=== PATIENT | male | born 1955 | race Caucasian/White ===

== ENCOUNTER 2018-07-25 16:52 | Observation (INO) | payer OTHER | END 2018-07-26 16:05 | disposition home or self-care (01) | LOC: MEDICAL 16:52 | PROVIDERS: ADMIT Hospitalist | DX: R20.0 Anesthesia of skin (principal); I10 Essential (primary) hypertension; E78.5 Hyperlipidemia, unspecified; E66.9 Obesity, unspecified; G47.33 Obstructive sleep apnea (adult) (pediatric); N17.9 Acute kidney failure, unspecified; G89.29 Other chronic pain; M54.5 Low back pain; E87.6 Hypokalemia; Z82.3 Family history of stroke; Z82.49 Family history of ischemic heart disease and other diseases of the circulatory system; Z79.82 Long term (current) use of aspirin ==

== ENCOUNTER → 2021-05-02 | Outpatient (CLI) | payer MEDICARE ==
[~2021-05-02] MED LIST: ALEVE 220MG220 MG PO; ANTARA; ANTARA PO; ASPIR-LOW81 MG PO; ATACAND 16M16 MG/TAB PO; CALTRATE-600 W600 MG PO; CARDIZEM CD 24240 MG PO; CARTIA XT120 MG PO; CLARITIN 1010 MG/TAB PO; GLUCOSAMINE MSM1 TAB PO; GLUCOSAMINE/CHONDROI PO; HCTZ 25MG TAB25 MG PO; K-DUR 10 MEQ T10 MEQ PO; MULTI VITAMINS1 TAB PO; MVI; NATURAL E400 IU PO; PRAVACHOL 20MG20 MG PO; PRAVACHOL10 MG PO; VITAMIN E1000 IU PO; ZOCOR; [UNRECOGNIZED DRUG - OTHER] PO
== END ==
LOC: MHCPAIN 10:19
DX: M47.817 Spondylosis without myelopathy or radiculopathy, lumbosacral region (principal); M53.3 Sacrococcygeal disorders, not elsewhere classified; M54.50 Low back pain, unspecified
CPT/HCPCS: G0463

== ENCOUNTER → 2021-05-12 | Outpatient (CLI) | payer MEDICARE | LOC: MHCPAIN 10:39 | DX: M47.817 Spondylosis without myelopathy or radiculopathy, lumbosacral region (principal); M53.3 Sacrococcygeal disorders, not elsewhere classified; M54.16 Radiculopathy, lumbar region | CPT/HCPCS: J1100; Q9967 ==

== ENCOUNTER → 2021-05-18 | Outpatient (CLI) | payer MEDICARE | LOC: MHCPAIN 10:49 | DX: M54.16 Radiculopathy, lumbar region (principal); M47.817 Spondylosis without myelopathy or radiculopathy, lumbosacral region; G89.29 Other chronic pain | CPT/HCPCS: G0463 ==

== ENCOUNTER → 2021-11-02 | Outpatient (CLI) | payer MEDICARE, OTHER | LOC: MHCPAIN 15:03 | DX: M47.817 Spondylosis without myelopathy or radiculopathy, lumbosacral region (principal); M53.3 Sacrococcygeal disorders, not elsewhere classified; M54.16 Radiculopathy, lumbar region | CPT/HCPCS: G0463 ==

== ENCOUNTER → 2021-11-17 | Outpatient (CLI) | payer MEDICARE, OTHER | LOC: MHCPAIN 08:02 | DX: M47.817 Spondylosis without myelopathy or radiculopathy, lumbosacral region (principal); M53.3 Sacrococcygeal disorders, not elsewhere classified; M54.16 Radiculopathy, lumbar region | CPT/HCPCS: J1100; Q9967 ==

== ENCOUNTER → 2021-12-07 | Outpatient (CLI) | payer MEDICARE, OTHER | LOC: MHCPAIN 08:42 | DX: M47.817 Spondylosis without myelopathy or radiculopathy, lumbosacral region (principal); M53.3 Sacrococcygeal disorders, not elsewhere classified; M54.16 Radiculopathy, lumbar region; I10 Essential (primary) hypertension; Z86.73 Personal history of transient ischemic attack (TIA), and cerebral infarction without residual deficits; Z79.01 Long term (current) use of anticoagulants | CPT/HCPCS: G0463 ==

== ENCOUNTER → 2021-12-15 | Outpatient (CLI) | payer MEDICARE, OTHER | LOC: MHCPAIN 08:54 | DX: M47.817 Spondylosis without myelopathy or radiculopathy, lumbosacral region (principal); M53.3 Sacrococcygeal disorders, not elsewhere classified; M54.50 Low back pain, unspecified ==

== ENCOUNTER → 2021-12-29 | Outpatient (CLI) | payer MEDICARE, OTHER | LOC: MHCPAIN 12:00 | DX: M47.817 Spondylosis without myelopathy or radiculopathy, lumbosacral region (principal); M54.50 Low back pain, unspecified; M53.3 Sacrococcygeal disorders, not elsewhere classified | CPT/HCPCS: G0463 ==

== ENCOUNTER 2022-08-07 15:15 | Day surgery (SDC) | payer MEDICARE, OTHER ==
[~2022-08-07] VITALS: Ht 172.7 cm; Wt 101.6 kg
[2022-08-07 16:13] VITALS: BP 160/61; PULSE 66; TEMP 98.8
[2022-08-07] MEDS ORDERED: TRICOR 48MG48 MG PO (16:32)
[2022-08-07] MEDS ORDERED: PLAVIX 75MG TAB75 MG PO (16:32)
[2022-08-07] MEDS ORDERED: COZAAR 50MG50 MG/TAB PO (16:33)
[2022-08-07] MEDS ORDERED: BYSTOLIC10 MG PO (16:34)
[2022-08-07] MEDS ORDERED: MINIPRESS 1M1 MG/CAP PO (16:35)
[2022-08-07] MEDS ORDERED: QUERCETIN500 M1 PO (16:37)
[2022-08-07] MEDS ORDERED: PHARMASSURE ZIN50 MG PO (16:37)
--- NOTE | 2022-08-07 16:40 | NUR ---
PATIENT ARRIVES TO UNIT WITH STEP DAUGHTER. PATIENT IS ALERT AND ORIENTED, VERY PLEASANT. GAIT IS STEADY. WEIGHT AND HEIGHT OBTAINED. VITAL SIGNS OBTAINED. DISCUSSED AND SIGNED CONSENT FORMS. REVIEWED NPO STATUS, MEDICATIONS AND ALLERGIES. ANESTHESIA CAME AND TALKED WITH PATIENT. PATIENT DRESSED IN TO CLEAN GOWN. IV PLACED BY MYKEL QUINTERO IN LEFT FOREARM. PATIENT IS WAITING TO GO BACK FOR SURGERY.
--- NOTE | 2022-08-07 18:20 | NUR ---
recieved pt from pacu. PT STEADY ON FEET. URIUNATED BEFORE GETTING INTO BED. LARGE AMOUNT SLIGHTLY PINK. PT GIVEN WATER AND CRACKERS TO SNACK ON. VITALS WNL
[2022-08-07 18:40] VITALS: BP 136/65; PULSE 73
[2022-08-07 18:49] VITALS: BP 143/74; PULSE 71
--- NOTE | 2022-08-07 19:10 | NUR ---
REVIEWED DISCHARGE INSTRUCTIONS. PT URINATED AGAIN. IV REMOVED. PT DRESSED. PT WHEELED OUT ER ENTRANCE. SON IN LAW TO DRIVE HOME
[2022-08-08 01:09] VITALS: BP 133/72; PULSE 64; TEMP 98.4
== END 2022-08-07 19:10 | disposition home or self-care (01) ==
LOC: SDCO 15:15
DX: N20.1 Calculus of ureter (principal); I10 Essential (primary) hypertension; G47.33 Obstructive sleep apnea (adult) (pediatric)
CPT/HCPCS: C1769; J0690; J1100; J2405; J2704; J3010; J7120; Q9967